=== PATIENT | female | born 1990 | race Caucasian/White ===

== ENCOUNTER 2025-10-01 10:19 | Outpatient (AMB) | payer SELFPAY ==
--- NOTE | 2025-10-01 10:21 | A.OFFVIS_ITS ---
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 Last pap smear more then 5 years ago, normal hx. 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 She found out last Wednesday that she is . She and her partner happy that was not planned but she is happy. She has never been before. She started vitamins. She is on 1 iron a day for mild anemia her last blood count was done a couple of months ago. She has heard that [facility] is closing so she knows that the only place to go for delivery and for comprehensive care with a team would be [facility]. 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 She does thinks she could mask when she is working with hair dye her anything that has fumes. She does not have any other toxic habits she used to vape and she quit that last week as well. She has been a little bit queasy if she gets hungry. She has been noticing a little bit increased fatigue. She has no other concerns though she is 35 years old. 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 Female Reproductive History Menstrual Age of Menarche: 11 Date of last menstrual period: 08/21/25 control method: none Total pregnancies: 1 History of abnormal pap smear: No Physical Exam Vital Signs: Last Vital Signs BP 112/70 10/01/25 10:37 BMI result Body Mass Index 22.5 Const General: healthy appearing, comfortable, no acute distress, well developed and alert Nutritional Appearance: average body habitus Orientation/consciousness: patient oriented x3 Limitations: no limitations HEENT Head: Yes normocephalic Neck Neck: Yes normal visual inspection Chest Chest palpation & inspection: normal inspection of the chest Breast/axilla inspection: normal inspection of the breasts and normal inspection of the axillae Breast/axilla palpation: normal palpation of the breasts and normal palpation of the axillae Resp Effort & Inspection: normal respiratory effort GI Inspection: Yes normal to inspection, No Abdominal wall edema and No distended Palpation (GI): Soft to palpation and nontender Other: External exam within normal limits vagina is pink and moist cervix is nulliparous pink smooth tightly closed with clear -white scant, mucus uterus is anteverted mobile nontender easy to feel feels not enlarged, nontender adnexa nontender good tone with Kegel. General: Yes bladder normal to palpation External Female Exam: normal external appearance and normal appearance of the urethra Speculum Exam - Vagina: normal appearance of the vagina, normal palpation and normal vaginal discharge Speculum Exam - Cervix: normal appearance of the cervix, normal palpation and nontender Bimanual exam- vagina & uterus: normal bimanual exam, normal palpation, uterine size normal, bladder normal to palpation, consistency normal, normal palpation, uterine mobility normal, uterine shape normal, No Cervical tenderness present, non-tender and no cervical motion tenderness Bimanual Exam- Adnexa, other: normal adnexae, no masses, normal and No adnexal tenderness Neuro General: patient oriented x3 Assessment & Plan Assessment & Plan (1) Well woman exam with routine gynecological exam: Code(s): Z01.419 - Encounter for gynecological examination (general) (routine) without abnormal findings Category: Medical (2) Early stage of : Comment: LMP 08/21/2025, STEFFEN 05/28/2026, 5 and 6 7th today positive test confirmed here. Will go to [facility] for all care. Code(s): Z34.90 - Encounter for supervision of normal , unspecified, unspecified trimester Category: Medical (3) Cervical cancer screening: Code(s): Z12.4 - Encounter for screening for malignant neoplasm of cervix Category: Medical (4) Screen for sexually transmitted diseases: Code(s): Z11.3 - Encounter for screening for infections with a predominantly sexual mode of transmission Category: Medical Plan This note is constructed using voice recognition software. While every effort has been made to ensure accuracy, art therapy specialist errors may have been included. Patient is here to discuss factors around early . Discussed her symptoms discussed dating discussed options for care given lack of full comprehensive labor and delivery services at [facility] at the moment. Discussed avoidance of certain foods according to ACOG guidelines. Discussed self-care discussed normalcy of all of her symptoms discussed what would need urgent care follow-up. Discussed next steps for care here and then also next steps if she chooses to seek care elsewhere and the necessity to make those appointments soon and discussed also 1st trimester screening for genetic concerns that needs to happen on a timely fashion and so needs to be thus scheduled and a timely fashion in order to accomplish it. Lists of practices given and options covered and we will see her for follow-up until she is seen somewhere else if she so chooses. Discussed self-care in general and substances to avoid and healthy practices and common experiences in her early including the possibility and risks of miscarriage and what to do if there any untoward symptoms of anything and where to go recommend seeking care at [facility] as that will be where she would intend to seek care anyway. Reviewed list of practices currently listed under [facility]. She is considering [facility]. She has relatives who have worked in the field and may have knowledge and be able to steer her. Discussed healthy eating 1 coffee a day would be fine discussed common symptoms in her early and how to manage including nausea fatigue constipation etc. discussed maintaining healthy weight and activity in she has intent ions of doing this. She already quit vaping which is wonderful. She will be getting blood work wherever she goes so there is no need to check for anemia today as it was recently checked for her anyway. At her request Pap smear was done as well as testing for gonorrhea chlamydia trich bacterial vaginosis and yeast. Her uterus is not enlarged at this point but I would not expected to feel enlarged. I did discuss the options of an early dating ultrasound but the most important thing is for her to not delay getting care where she intends to go and she might be better served by calling as soon as possible and arranging care patient will be furnished with a letter stating positive test today and STEFFEN of 05/28/2026 by her dates she would be 5 weeks and 6 days today . Discussed the usual timing for genetic screening ultrasounds and testing that needs to be done around 12 weeks gestation so getting in for care before that is important. When she arrives where she is going to be getting care she can sign for any records from today to be sent (Pap smear and STI testing). Coding Level of Care Code New Pt Prev Care [id number]([id number] Diagnoses Well woman exam with routine gynecological exam Z01.419 Early stage of Z34.90 Cervical cancer screening Z12.4 Screen for sexually transmitted diseases Z11.3
[2025-10-01 10:37] VITALS: BP 112/70; BMI 22.5
== END 2025-10-01 11:38 | disposition home or self-care (01) ==
LOC: HO.HWS 10:19
PROVIDERS: Visit Provider Advanced Practice Midwife
DX: Z01.419 Encounter for gynecological examination (general) (routine) without abnormal findings (principal); Z11.3 Encounter for screening for infections with a predominantly sexual mode of transmission
CPT/HCPCS: 99385; 99459

== ENCOUNTER 2025-10-01 10:19 | Outpatient (REF) | payer OTHER, SELFPAY ==
[2025-10-02 00:36] LABS: Bacterial Vaginosis PCR POSITIVE (Negative); Candida Group PCR DETECTED (Not Detect); Candida glab krusei PCR NOT DETECTED (Not Detect); Trichomonas vaginalis PCR NOT DETECTED (Not Detect)
[2025-10-02 01:07] LABS: CT PCR NOT DETECTED (Not Detect.); NG PCR NOT DETECTED (Not Detect.)
== END 2025-10-01 10:20 | disposition home or self-care (01) ==
LOC: HO.LNP 10:19
PROVIDERS: Visit Provider Advanced Practice Midwife
DX: Z01.419 Encounter for gynecological examination (general) (routine) without abnormal findings (principal); Z34.90 Encounter for supervision of normal pregnancy, unspecified, unspecified trimester; Z11.51 Encounter for screening for human papillomavirus (HPV); Z20.2 Contact with and (suspected) exposure to infections with a predominantly sexual mode of transmission
CPT/HCPCS: 81515; 87491; 87591; 87626; 88175; 99385